=== PATIENT | male | born 1960 ===

== ENCOUNTER 2023-12-21 07:57 | Outpatient (CLI) | payer OTHER | END 2023-12-22 08:38 | disposition home or self-care (01) | LOC: SONOGRAMA 07:57 | PROVIDERS: ATTEND Internal Medicine Gastroenterology | DX: K51.90 Ulcerative colitis, unspecified, without complications (principal); R10.13 Epigastric pain; R14.0 Abdominal distension (gaseous); R10.31 Right lower quadrant pain; K29.00 Acute gastritis without bleeding; R11.2 Nausea with vomiting, unspecified ==

== ENCOUNTER 2024-01-09 09:39 | Outpatient (CLI) | payer OTHER ==
[2024-01-09 10:33] LABS: CREATININE SERUM 0.85 mg/dL (0.70-1.30)
== END 2024-01-09 09:40 | disposition home or self-care (01) ==
LOC: LAB 09:39
PROVIDERS: ATTEND Radiology Diagnostic Radiology
DX: K76.0 Fatty (change of) liver, not elsewhere classified (principal)

== ENCOUNTER 2024-01-11 07:41 | Outpatient (CLI) | payer OTHER | END 2024-01-11 08:08 | disposition home or self-care (01) | LOC: TOM 07:41 | DX: R94.5 Abnormal results of liver function studies (principal); R94.2 Abnormal results of pulmonary function studies; K76.0 Fatty (change of) liver, not elsewhere classified; K51.90 Ulcerative colitis, unspecified, without complications | CPT/HCPCS: 74182 ==

== ENCOUNTER → 2024-02-10 06:48 | Outpatient (CLI) | payer OTHER ==
[2024-02-10 07:16] LABS: PH,URINE 5.5 (5.0-8.0); URINE APPEARANCE Clear; URINE BILIRRUBIN Negative (NEGATIVE); URINE BLOOD Negative; URINE COLOR Yellow; URINE GLUCOSE Negative (NEGATIVE); URINE KETONE Trace (NEGATIVE); URINE LEUKOCYTE Negative; URINE NITRATE Negative; URINE PROTEIN 30 (NEGATIVE); URINE UROBILINOGEN 0.2 E.U./dl
[2024-02-10 07:17] LABS: URINE BACTERIA 15.1 uL (0.0-1933); URINE EPITHELIAL CELLS 1.9 uL (0.0-38.8); URINE RBC 3.8 uL (0.0-20.8); URINE WBC 2.1 uL (0.0-23.2)
[2024-02-10 07:20] LABS: HEMATOCRIT 42.7 % (39.0-48.0); HEMOGLOBIN 14.7 g/dL (13-16.00); MEAN CELL VOLUME 94.5 fL (80.0-100.00); MEAN CORPUSCULAR HEMOGLOBIN 32.5 pg (27.00-32.0); MEAN CORPUSCULAR HGB CONC 34.4 g/dl (32.0-36.0); PLATELET COUNT 300 K/uL (150-450); RED BLOOD COUNT 4.52 M/uL (4.00-6.00); RED CELL DISTRIBUTION WIDTH 14.1 % (11.5-14.5)
[2024-02-10 08:33] LABS: ALBUMIN 3.9 gm/dL (3.4-5.0); BILIRUBIN TOTAL 0.73 mg/dL (0.3-1.2); BILIRUBIN,CONJUGATED 0.24 mg/dL (0.0-0.2); BILIRUBIN,UNCONJUGATED 0.49 mg/dL (0.0-0.6); CALCIUM 9.1 mg/dL (8.5-10.1); CHOL HDL RATIO 1.7 (0-5.0); CREATININE SERUM 0.78 mg/dL (0.70-1.30); GFR 100.21; GLOBULINA 3.8 G/DL (2.4-3.5); POTASSIUM 4.42 mEq/L (3.5-5.1); PROSTATIC SPECIFIC ANTIGEN 1.68 NG/ML (0.010-4.00); TOTAL PROTEIN 7.7 gm/dL (6.4-8.2); TSH 1.36 uIU/mL (0.358-3.74)
[2024-02-13 11:31] LABS: ob NEGATIVE (NEGATIVE)
[2024-02-14 01:04] LABS: Phos alk 561 IU/L (44-121); bone f 37 % (12-68); intestinal f 1 % (0-18); liver fractio 62 % (13-88)
== END | disposition home or self-care (01) ==
LOC: LAB 06:48
PROVIDERS: ATTEND Internal Medicine Gastroenterology
DX: R74.8 Abnormal levels of other serum enzymes (principal); N39.0 Urinary tract infection, site not specified; R63.2 Polyphagia; I11.9 Hypertensive heart disease without heart failure; E78.00 Pure hypercholesterolemia, unspecified; D64.9 Anemia, unspecified; E55.9 Vitamin D deficiency, unspecified; Z12.11 Encounter for screening for malignant neoplasm of colon; R94.5 Abnormal results of liver function studies; R94.6 Abnormal results of thyroid function studies; Z12.5 Encounter for screening for malignant neoplasm of prostate; N40.0 Benign prostatic hyperplasia without lower urinary tract symptoms

== ENCOUNTER 2024-02-10 07:30 | Outpatient (CLI) | payer OTHER | END 2024-02-10 07:35 | disposition home or self-care (01) | LOC: RAD 07:30 | PROVIDERS: ATTEND Internal Medicine | DX: I11.9 Hypertensive heart disease without heart failure (principal); M54.2 Cervicalgia ==